=== PATIENT | female | born 1955 | race American Indian/Alaskan Native ===

== ENCOUNTER 2016-10-25 06:19 | Day surgery (SDC) | payer BC, OTHER ==
[2016-10-25] MEDS ORDERED: WATER FOR IRRIG STERILE IR ONE (07:30)
[2016-10-25] MEDS ORDERED: WATER FOR IRRIG STERILE ONE (07:31)
[2016-10-25] MEDS ORDERED: DIPRIVAN 10 MG/ML IV ONE ×2 (07:52)
--- NOTE | 2016-10-25 07:54 | Anesthesia Day of Surgery ---
Anesthesia Day of Surgery - Day of Surgery Patient Examined: Yes Patient H&P Reviewed: Yes Patient is NPO: Yes Cardiac Clearance: Yes
--- NOTE | 2016-10-25 07:54 | Anesthesia Consultation ---
Anesthesia Consult and Med Hx Date of service: 10/25/16 - Airway Anesthetic Teeth Evaluation: Poor (some missing , lateral ) ROM Head & Neck: Adequate Mental/Hyoid Distance: Adequate Mallampati Class: Class III Intubation Access Assessment: Possibly Difficult - Pulmonary Exam CTA: Yes - Cardiac Exam Cardiac Exam: RRR - Pre-Operative Health Status ASA Pre-Surgery Classification: ASA3 Proposed Anesthetic Plan: TIVA - Pre-Anesthesia Comment Pre-Anesthesia Comments: No anesthesia complications. Cardiac clearence 09/2016. EF 50%, nueropathy ble. Unsteady gait - Pulmonary SOB: Yes (with exertion ) - Cardiovascular System Hx Hypertension: Yes (CHF (losartan,lasix)) - Gastrointestinal Hx Gastroesophageal Reflux Disease: Yes - Endocrine Hx Non-Insulin Dependent Diabetes: Yes - Other Systems Hx Obesity: Yes
[2016-10-25] MEDS ORDERED: NACL 0.9% 1000 ML 1,000 ML IV SCH (08:00)
--- NOTE | 2016-10-25 08:34 | Post Operative Note ---
Pre-op diagnosis: reflux/dysphagia, heme + stool Post-op diagnosis: other (large hiatal hernia, diverticulosis, internal hemorrhoids) Findings: EGD: large hiatal hernia, otherwise unremarkable colonoscopy: diverticulosis, internal hemorrhoids Procedure: colonoscopy + EGD Anesthesia: MAC Surgeon: PAYTON MIKE Estimated blood loss: none Pathology: none Condition: stable Disposition: same day
--- NOTE | 2016-10-25 08:47 | Post Anesthesia Evaluation ---
- Post Anesthesia Evaluation Patient Participated: Yes Airway Patent: Yes Stable Respiratory Function: Yes Temp > 96.8F: Yes Pain Manageable: Yes Adequeate Hydration: Yes Anesthesia Complications: No Block Receding Appropriately: Not Applicable
--- NOTE | 2016-10-25 08:48 | Operative Report ---
PROCEDURE: Esophagogastroduodenoscopy. PREOPERATIVE DIAGNOSES: Heartburn, dysphagia, heme-positive stool. POSTOPERATIVE DIAGNOSES: Large hiatal hernia, otherwise unremarkable. ANESTHESIA: Monitored anesthesia care. COMPLICATIONS: No immediate complications. ESTIMATED BLOOD LOSS: None. DESCRIPTION OF PROCEDURE: After consent was obtained, the patient was placed in left lateral decubitus position. The standard upper Fujinon endoscope was advanced with direct vision, advanced to the duodenum without difficulty. The views of the mucosa were fair. The patient tolerated the procedure fairly well. FINDINGS: There is a large hiatal hernia, otherwise no significant findings seen on EGD. IMPRESSION: Large hiatal hernia. RECOMMENDATIONS: 1. Continue PPI before breakfast for reflux symptoms. 2. Proceed with colonoscopy. JOB# [id number] [place]/[facility]
--- NOTE | 2016-10-25 08:52 | Operative Report ---
NAME OF PROCEDURE: Colonoscopy. PREOPERATIVE DIAGNOSIS: Heme positive stool. POSTOPERATIVE DIAGNOSES: Diverticulosis, internal hemorrhoids. ANESTHESIA: Monitored anesthesia care. COMPLICATIONS: No immediate complications. ESTIMATED BLOOD LOSS: None. DESCRIPTION OF PROCEDURE: Consent was obtained, the patient was placed in the lateral decubitus position. The Fujinon colonoscope was advanced without difficulty to the cecum. The patient tolerated the procedure well. The views of the mucosa were fair. The quality of the prep was fair. FINDINGS: 1. There were multiple small to medium mouth diverticula throughout the colon. 2. Moderate-sized internal hemorrhoids. 3. Otherwise, normal colonoscopy. IMPRESSION: 1. Diverticulosis. 2. Internal hemorrhoids. RECOMMENDATIONS: 1. High fiber diet daily. 2. Repeat colonoscopy for screening purposes in 3-5 years. 3. Follow up in GI clinic in 1 month. JOB# [id number] [place]/[facility]
[2016-10-25 09:05] VITALS: BP 152/88
== END 2016-10-25 06:20 | disposition home or self-care (01) ==
LOC: GIO 06:19
PROVIDERS: ATTEND Internal Medicine Gastroenterology
DX: K57.30 Diverticulosis of large intestine without perforation or abscess without bleeding (principal); K64.8 Other hemorrhoids; K44.9 Diaphragmatic hernia without obstruction or gangrene; I11.0 Hypertensive heart disease with heart failure; I50.9 Heart failure, unspecified; K21.9 Gastro-esophageal reflux disease without esophagitis; E11.9 Type 2 diabetes mellitus without complications; E66.9 Obesity, unspecified; Z68.43 Body mass index [BMI] 50.0-59.9, adult; Z79.899 Other long term (current) drug therapy
CPT/HCPCS: 43235; 45378; 82962; J2704; J7030